=== PATIENT | male | born 1970 | race African-American/Black ===

== ENCOUNTER 2018-11-15 19:29 | Emergency (ER) | payer BC, SELFPAY ==
[2018-11-15] MEDS ORDERED: Ibuprofen 800 MG TAB ONE (19:58)
[2018-11-15] MEDS ORDERED: Ondansetron ODT 4 MG TAB ONE (19:58)
--- NOTE | 2018-11-15 20:05 | RAD ---
EXAM: Chest 2 views: HISTORY: Cough COMPARISON: None. FINDINGS: There is a normal-sized cardiomediastinal silhouette. There is no evidence of consolidation, mass, or pleural effusion. The bones are unremarkable. IMPRESSION: No evidence of acute cardiopulmonary disease
== END 2018-11-15 20:40 | disposition home or self-care (01) ==
LOC: MADERS 19:29
DX: J11.1 Influenza due to unidentified influenza virus with other respiratory manifestations (principal); F17.210 Nicotine dependence, cigarettes, uncomplicated
CPT/HCPCS: 71046; 87804; Q0162

== ENCOUNTER 2019-04-15 08:27 | Outpatient (CLI) | payer BC ==
[2019-04-15 09:21] LABS: Bilirubin Negative (Negative); Blood, Urine Small (Negative); Clarity Clear (Clear); Glucose, Urine (Dipstick) Negative (Negative); Leukocyte Negative (Negative); Nitrite Negative (Negative); Protein, Urine (Dipstick) > or equal to 300 mg/dL (Neg-Trace); Urobilinogen 0.2 mg/dL (Less than 2)
[2019-04-15 09:28] LABS: Bacteria/HPF Rare-Few HPF (None Seen); RBC/HPF 0-3 HPF (0-3); Squamous Epithelial 0-3 HPF (0-3); WBC/HPF 0-3 HPF (0-3)
[2019-04-15 09:32] LABS: ALT (SGPT) 26 U/L (8-55); AST (SGOT) 24 U/L (5-34); Albumin 4.7 g/dL (3.5-5.0); Alkaline Phosphatase 83 U/L (40-110); Anion Gap 17 mmol/L (10-20); BUN (Urea Nitrogen) 18 mg/dL (8.9-20.6); Bilirubin, Total 0.6 mg/dL (0.2-1.2); Calc. Creatinine Clearance 0 mL/min (70-130); Calcium 9.5 mg/dL (7.8-10.44); Carbon Dioxide 31 mmol/L (22-29); Cardiac Risk 4.8 (Less than 4.5); Chloride 97 mmol/L (98-107); Cholesterol 229 mg/dl (< 200 Desired); Estimated GFR-MDRD 59; Globulin 3.1 g/dL (2.4-3.5); Glucose 105 mg/dL (70-105); HDL Cholesterol 48 mg/dL (>60 Neg Risk); LDL Cholesterol, Calculated 160 mg/dL; Potassium 4.2 mmol/L (3.5-5.1); Protein, Total 7.8 g/dL (6.0-8.3); Sodium 141 mmol/L (136-145); Triglycerides 106 mg/dL (Less than 150)
--- NOTE | 2019-04-15 09:42 | RAD ---
EXAM: Chest PA and lateral: HISTORY: Hypertension COMPARISON: 11/15/2018 FINDINGS: Heart: Normal cardiac silhouette Aorta: Unremarkable Pulmonary vessels: Normal Costophrenic angles: Costophrenic angles are clear. Lungs: No consolidation or masses. Pneumothorax: No pneumothorax Osseous structures: No osseous abnormalities IMPRESSION: No acute cardiopulmonary process.
== END 2019-04-15 08:28 | disposition home or self-care (01) ==
LOC: MADLABBHPM 08:27
PROVIDERS: ATTEND Family Medicine
DX: I10 Essential (primary) hypertension (principal); T14.8XXA Other injury of unspecified body region, initial encounter
CPT/HCPCS: 36415; 71046; 80053; 80061; 81001; 93005; 93010

== ENCOUNTER 2019-05-09 16:42 | Outpatient (CLI) | payer BC ==
[2019-05-09 18:43] LABS: ALT (SGPT) 31 U/L (8-55); AST (SGOT) 23 U/L (5-34); Albumin 4.4 g/dL (3.5-5.0); Alkaline Phosphatase 82 U/L (40-110); Anion Gap 14 mmol/L (10-20); BUN (Urea Nitrogen) 24 mg/dL (8.9-20.6); Bilirubin, Total 0.3 mg/dL (0.2-1.2); Calc. Creatinine Clearance 0 mL/min (70-130); Calcium 9.5 mg/dL (7.8-10.44); Carbon Dioxide 31 mmol/L (22-29); Chloride 102 mmol/L (98-107); Estimated GFR-MDRD 60; Globulin 3.3 g/dL (2.4-3.5); Glucose 105 mg/dL (70-105); Potassium 4.7 mmol/L (3.5-5.1); Protein, Total 7.7 g/dL (6.0-8.3); Sodium 142 mmol/L (136-145)
== END 2019-05-09 16:43 | disposition home or self-care (01) ==
LOC: MADLAB 16:42
PROVIDERS: ATTEND Family Medicine
DX: I16.0 Hypertensive urgency (principal); N28.9 Disorder of kidney and ureter, unspecified
CPT/HCPCS: 36415; 80053

== ENCOUNTER 2019-06-27 13:04 | Emergency (ER) | payer BC | END 2019-06-27 14:10 | disposition home or self-care (01) | LOC: MADERS 13:04 | DX: H92.01 Otalgia, right ear (principal); R59.0 Localized enlarged lymph nodes | CPT/HCPCS: 99282 ==

== ENCOUNTER 2019-12-19 08:03 | Emergency (ER) | payer BC | END 2019-12-19 09:07 | disposition left against medical advice (07) | LOC: MADERS 08:03 | DX: R42 Dizziness and giddiness (principal); E78.5 Hyperlipidemia, unspecified; I10 Essential (primary) hypertension; F17.210 Nicotine dependence, cigarettes, uncomplicated; Z79.899 Other long term (current) drug therapy | CPT/HCPCS: 99283 ==

== ENCOUNTER 2022-01-20 09:57 | Outpatient (CLI) | payer BC ==
[2022-01-20 11:01] LABS: ALT (SGPT) 41 U/L (8-55); AST (SGOT) 32 U/L (5-34); Alkaline Phosphatase 96 U/L (40-110); Anion Gap 14 mmol/L (10-20); BUN (Urea Nitrogen) 19 mg/dL (8.9-20.6); Bilirubin, Total 0.3 mg/dL (0.2-1.2); Calc. Creatinine Clearance 0 mL/min (70-130); Calcium 9.8 mg/dL (7.8-10.44); Carbon Dioxide 29 mmol/L (22-29); Cardiac Risk 3.5 (Less than 4.5); Chloride 103 mmol/L (98-107); Cholesterol 117 mg/dl (< 200 Desired); Estimated GFR 55; Globulin 3.8 g/dL (2.4-3.5); Glucose 97 mg/dL (70-105); HDL Cholesterol 33 mg/dL (>60 Neg Risk); LDL Cholesterol, Calculated 70 mg/dL; Potassium 4.5 mmol/L (3.5-5.1); Protein, Total 7.8 g/dL (6.0-8.3); Sodium 141 mmol/L (136-145); Triglycerides 68 mg/dL (Less than 150)
== END 2022-01-20 09:58 | disposition home or self-care (01) ==
LOC: MADLABBHPM 09:57 → MADLAB 09:58
PROVIDERS: ATTEND Family Medicine
DX: E78.2 Mixed hyperlipidemia (principal); I10 Essential (primary) hypertension
CPT/HCPCS: 80053; 80061

== ENCOUNTER 2022-03-15 18:25 | Emergency (ER) | payer BC ==
[2022-03-15 19:33] LABS: #Eosinphils 0.3 thou/uL (0.0-0.7); #Lymphocytes 0.9 thou/uL (1.20-3.40); #Monocytes 0.5 thou/uL (0.11-0.59); #Neutrophils 3.3 thou/uL (1.40-6.50); %Basophils 0.5 % (0.0-1.0); %Eosinophils 6.6 % (0.0-10.0); %Lymphocytes 17.3 % (21.0-51.0); %Monocytes 9.3 % (0.0-10.0); %Neutrophils 66.3 % (42.0-75.0); Hemoglobin 10.9 g/dL (14.0-18.0); Mean Corpuscular HGB CONC 33.1 g/dL (32.0-36.0); Mean Corpuscular Hemoglobin 29.3 pg (27.0-31.0); Mean Corpuscular Volume 88.4 fL (78.0-98.0); Mean Platelet Volume 6.3 fL (7.4-10.4); Platelet Count 271 thou/uL (130-400); RBC Distribution Width 11.8 % (11.5-14.5); Red Blood Cell (RBC) Count 3.72 mill/uL (4.70-6.10); White Blood Cell (WBC) Count 4.9 thou/uL (4.8-10.8)
[2022-03-15] MEDS ORDERED: Sodium Chloride 0.9% 1,000 ML ONE ×2 (19:37→21:43)
[2022-03-15 19:55] LABS: ALT (SGPT) 36 U/L (8-55); AST (SGOT) 30 U/L (5-34); Albumin 3.9 g/dL (3.5-5.0); Alkaline Phosphatase 88 U/L (40-110); Anion Gap 13 mmol/L (10-20); BUN (Urea Nitrogen) 24 mg/dL (8.9-20.6); Bilirubin, Total 0.3 mg/dL (0.2-1.2); CK (CPK) 605 U/L (30-200); Calc. Creatinine Clearance 0 mL/min (70-130); Carbon Dioxide 31 mmol/L (22-29); Chloride 98 mmol/L (98-107); Estimated GFR 42; Globulin 4.4 g/dL (2.4-3.5); Glucose 106 mg/dL (70-105); Magnesium 1.4 mg/dL (1.6-2.6); Potassium 4.4 mmol/L (3.5-5.1); Protein, Total 8.3 g/dL (6.0-8.3); Sodium 138 mmol/L (136-145)
[2022-03-15] MEDS ORDERED: Magnesium 2 GM/50 ML BAG (IN WATER) ONE (20:36)
== END 2022-03-15 22:45 | disposition home or self-care (01) ==
LOC: MADERS 18:25
DX: E83.42 Hypomagnesemia (principal); N17.9 Acute kidney failure, unspecified; M62.82 Rhabdomyolysis; R29.700 NIHSS score 0; I10 Essential (primary) hypertension
CPT/HCPCS: 80053; 82550; 83735; 84443; 85025; 96361; 96365; J3475; J7050